=== PATIENT | female | born 1985 | race Caucasian/White ===

== ENCOUNTER 2016-06-14 15:07 | Emergency (ER) | payer OTHER ==
[~2016-06-14] VITALS: Ht 157.5 cm; Wt 81.4 kg
[2016-06-14 15:41] LABS: HEMATOCRIT 35.3 % (36.0-46.0); MCH 29.1 PG (29.0-34.0); MCHC 32.6 G/DL (30.0-36.0); MCV 89.4 FL (83-99); MEAN PLAT.VOLUME 10.6 uM^3 (9.5-12.4); PLATELET COUNT 220 K/uL (156-360); RBC DIS.WIDTH-CV 13.5 % (11.8-14.6); RBC DIS.WIDTH-SD 43.4 % (39-53); RED BLOOD COUNT 3.95 M/uL (3.80-5.20); WHITE BLOOD COUNT 7.4 K/uL (4.1-10.2)
[2016-06-14] MEDS ORDERED: ZOLOFT PO (16:00)
[2016-06-14 16:06] LABS: ADD MIUA? YES; BILIRUBIN SMALL; BLOOD LARGE; COLOR BLOODY ((YELLOW)); GLUCOSE (STRIP) NEGATIVE; KETONES 5; LEUKOCYTES SMALL; NITRITE NEGATIVE; PROTEIN (STRIP) 30; SPECIFIC GRAVITY 1.035 (1.000-1.030); UROBILINOGEN 0.2 MG/DL (0.2-1.0)
[2016-06-14 16:08] LABS: CHLORIDE 107 mEq/L (99-109); POTASSIUM 3.9 mEq/L (3.7-5.4); SODIUM 138 mEq/L (136-147)
[2016-06-14 16:10] LABS: GLUCOSE 86 mg/dL (70-99)
[2016-06-14 16:12] LABS: ANION GAP 9 MEQ/L (2-14); TOTAL BILIRUBIN 0.3 mg/dL (0.0-1.0)
[2016-06-14 16:14] LABS: ALKALINE PHOSPHATASE 85 IU/L (3-129); GFR ESTIMATE (CALCULATED) > 59 mL/min/
[2016-06-14 16:15] LABS: UREA NITROGEN (BUN) 15 mg/dL (9-23)
[2016-06-14 16:18] LABS: RED BLOOD CELLS TNTC /HPF (0-5); UCUL ADDED? YES
[2016-06-14 16:23] LABS: QUANTITATIVE HCG < 4.0 MIU/ML
[2016-06-14] MEDS ORDERED: NAPROSYN500 MG PO (19:22)
[2016-06-14] MEDS ORDERED: ZOFRAN ODT4 MG PO (19:22)
[2016-06-14 19:56] VITALS: BP 126/76
== END 2016-06-14 20:07 | disposition home or self-care (01) ==
LOC: EME 15:07
DX: N93.9 Abnormal uterine and vaginal bleeding, unspecified (principal); R10.12 Left upper quadrant pain
CPT/HCPCS: 74176; 76856; 80053; 81003; 84702; 85027; 87086; 99281; 99284

== ENCOUNTER 2017-03-18 06:37 | Day surgery (SDC) | payer OTHER ==
[~2017-03-18] VITALS: Ht 157.5 cm; Wt 78.4 kg
[~2017-03-18 06:37] MED LIST: FEOSOL325 MG PO; IBUPROFEN400 MG PO; IMITREX50 MG PO; NAPROSYN500 MG PO; ZOFRAN ODT4 MG PO; ZOLOFT PO; ZOLOFT100 MG PO
[2017-03-18 07:13] VITALS: BP 109/68
[2017-03-18 09:10] VITALS: BP 115/75
[2017-03-18 10:01] VITALS: BP 103/67
== END 2017-03-18 10:06 | disposition home or self-care (01) ==
LOC: SDC 06:37
DX: N92.0 Excessive and frequent menstruation with regular cycle (principal); D64.9 Anemia, unspecified; F41.9 Anxiety disorder, unspecified
CPT/HCPCS: 88305; J1100; J1170; J1885; J2250; J2405; J3010